=== PATIENT | male | born 2000 | race American Indian/Alaskan Native ===

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

== ENCOUNTER 2021-01-04 18:58 | Emergency (ER) | payer SELFPAY ==
[2021-01-04] MEDS ORDERED: SODIUM CHLORIDE 0.9% IRR 500 ML BOTTLE IR ONE (19:05)
[2021-01-04] MEDS ORDERED: HYDROmorphone 1 MG/1 ML INJ IV ONE ×2 (19:05→22:41)
[2021-01-04] MEDS ORDERED: LACTATED RINGERS 1,000 ML IV ONE (19:05)
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
[2021-01-04 20:17] LABS: Hematocrit 45.3 % (35.5-45.6); Hemoglobin 15.5 gm/dl (11.8-15.2); Mean Corpuscular HGB Conc 34 % (32-34); Mean Corpuscular Volume 85 fl (84-94); Platelet Count 298 K/mm3 (140-440); Red Blood Count 5.31 M/mm3 (3.65-5.03); Red Cell Distribution Width 14.2 % (13.2-15.2)
[2021-01-04 20:20] LABS: BUN/Creatinine Ratio 8; Blood Urea Nitrogen 9 mg/dL (9-20); Calcium 9.9 mg/dL (8.4-10.2); Hemolysis Index 4
[2021-01-04] MEDS ORDERED: ceFAZolin/NS 1 GM/50 ML 1 GM/50 ML BAG IV ONE (20:32)
[2021-01-04] MEDS ORDERED: KETOROLAC 30 MG/1 ML INJ IV ONE (22:41)
[2021-01-04 23:50] VITALS: BP 134/89
== END 2021-01-05 02:07 | disposition home or self-care (01) ==
LOC: ED 18:58
DX: S81.831A Puncture wound without foreign body, right lower leg, initial encounter (principal); W34.09XA Accidental discharge from other specified firearms, initial encounter; Y93.89 Activity, other specified; Y92.89 Other specified places as the place of occurrence of the external cause; Y99.8 Other external cause status
CPT/HCPCS: 36415; 72170; 73552; 80048; 82550; 83735; 85027; 96361; 96365; 96375; 96376; 99284; J0690; J1170; J1885; J7120; 80320; G0480